=== PATIENT | male | born 1990 | race Hispanic/Latino ===

== ENCOUNTER 2017-03-01 15:48 | Emergency (ER) | payer OTHER ==
[~2017-03-01] VITALS: Ht 188 cm; Wt 63.0 kg
[~2017-03-01 15:48] MED LIST: BACTRIM DS1 TAB PO; FLUARIX QUADRIV1 INJ IM; MOTRIN800 MG PO; NO; PREVACID30 M3 PO; TYLENOL # 31 TA1 PO; ULTRAM50 M1 PO; ZOFRAN ODT4 MG PO
[2017-03-01] MEDS ORDERED: AMOXICILLIN500 MG PO (16:33)
[2017-03-01 17:01] LABS: INFLUENZA A NONE DETECTED (NONE DETECT); INFLUENZA B NONE DETECTED (NONE DETECT)
[2017-03-01 17:20] VITALS: BP 121/69
== END 2017-03-01 17:20 | disposition home or self-care (01) | DRG 153 ==
LOC: ED 15:48
PROVIDERS: Emergency Medicine
DX: J02.9 Acute pharyngitis, unspecified (principal); R09.81 Nasal congestion; R05 Cough

== ENCOUNTER 2023-03-11 15:54 | Emergency (ER) | payer OTHER ==
[~2023-03-11] VITALS: Ht 188 cm; Wt 60.0 kg
[~2023-03-11 15:54] MED LIST changes: +AMOXICILLIN500 MG PO
[2023-03-11 17:07] LABS: BASO% 0.3 % (0-3); EOS% 0.5 % (0-8); HEMATOCRIT 45.7 % (39.0-50.0); HEMOGLOBIN 15.4 g/dl (14.0-18.0); IMMATURE GRANULOCYTES 0.1 % (0.0-5.0); LYMPH% 35.3 % (15-41); MEAN CELL VOLUME 94.4 fL CALC (80.0-100.0); MEAN CORPUSCULAR HGB 31.8 pG CALC (26.0-32.0); MEAN CORPUSCULAR HGB CONC 33.7 g/dL CAL (32.0-36.0); NEUT# 5.39 thou/uL (1.82-7.42); NEUT% 56.8 % (42-76); RED BLOOD COUNT 4.84 mill/uL (4.70-6.10); RED CELL DISTRI WIDTH 11.7 % (11.5-15.5)
[2023-03-11 17:20] LABS: ALBUMIN 4.9 g/dL (3.2-5.0); ALKALINE PHOSPHATASE 65 u/l (38-126); BILIRUBIN, TOTAL 0.7 mg/dL (0.2-1.3); BUN 14 mg/dL (9-20); BUN/CREATININE RATIO 15 (12-20 (CALC)); CARBON DIOXIDE 28 mmol/l (22-30); CHLORIDE 104 mmol/l (95-108); CREATININE 0.9 mg/dL (0.7-1.3); GFR FOR AFR.AMER. > 60 ML/MIN (>=60 (CALC)); GFR OTHER RACES > 60 ML/MIN (>=60 (CALC)); LIPASE 67 u/l (23-300); SGOT/AST 29 u/l (17-59); SODIUM 141 mmol/l (137-146); TOTAL PROTEIN 7.8 g/dL (6.3-8.2)
[2023-03-11 17:21] LABS: ANION GAP 13 (6-22 (CALC)); POTASSIUM 3.5 mmol/l (3.5-5.1)
[2023-03-11 19:58] LABS: URINE BILIRUBIN - DIPSTICK NEGATIVE (NEGATIVE); URINE BLOOD DIPSTICK TRACE-INTACT (NEGATIVE); URINE COLOR YELLOW; URINE GLUCOSE - DIPSTICK NEGATIVE (NEGATIVE); URINE KETONE 15 mg/dL (NEGATIVE); URINE LEUK ESTERASE NEGATIVE (NEGATIVE); URINE PROTEIN - DIPSTICK NEGATIVE (NEG-TRACE); URINE SPECIFIC GRAVITY 1.015; URINE UROBILINOGEN - DIPSTICK 0.2 E.U./dL (0.2)
[2023-03-11 20:03] LABS: URINE NITRITE - DIPSTICK NEGATIVE (Negative)
[2023-03-11 20:54] VITALS: BP 114/69
== END 2023-03-11 21:02 | disposition home or self-care (01) ==
LOC: ED 15:54
PROVIDERS: Family Medicine
DX: K59.00 Constipation, unspecified (principal)
CPT/HCPCS: Q9967

== ENCOUNTER 2024-11-28 15:45 | Emergency (ER) | payer OTHER ==
[~2024-11-28] VITALS: Ht 188 cm; Wt 64.4 kg
[2024-11-28] VITALS (7 sets, daily range): BP systolic 110–135; BP diastolic 63–86
[2024-11-28] MEDS ORDERED: ORPHENADRINE CITRATE 30 MG/ML AMP IV ONE (16:25)
[2024-11-28] MEDS ORDERED: KETOROLAC TROMETHAMINE 30 MG/ML SDV IV ONE (16:25)
[2024-11-28 16:34] LABS: BASO% 0.3 % (0-3); EOS% 0.9 % (0-8); HEMOGLOBIN 16.1 g/dl (14.0-18.0); IMMATURE GRANULOCYTES 0.1 % (0.0-5.0); LYMPH% 37.6 % (15-41); MEAN CELL VOLUME 94.4 fL CALC (80.0-100.0); MEAN CORPUSCULAR HGB 32.3 pG CALC (26.0-32.0); MEAN CORPUSCULAR HGB CONC 34.3 g/dL CAL (32.0-36.0); MONO% 6.8 % (2-13); NEUT# 4.15 thou/uL (1.82-7.42); NEUT% 54.3 % (42-76); RED BLOOD COUNT 4.98 mill/uL (4.70-6.10); RED CELL DISTRI WIDTH 11.5 % (11.5-15.5)
[2024-11-28 16:35] LABS: URINE BILIRUBIN - DIPSTICK Negative (NEGATIVE); URINE BLOOD DIPSTICK Negative (NEGATIVE); URINE COLOR Yellow; URINE GLUCOSE - DIPSTICK Negative (NEGATIVE); URINE KETONE Negative (NEGATIVE); URINE LEUK ESTERASE Negative (NEGATIVE); URINE NITRITE - DIPSTICK Negative (Negative); URINE PROTEIN - DIPSTICK Negative (NEG-TRACE); URINE UROBILINOGEN - DIPSTICK 0.2 E.U./dL (0.2)
[2024-11-28 16:51] LABS: ALBUMIN 5.1 g/dL (3.2-5.0); BILIRUBIN, TOTAL 0.6 mg/dL (0.2-1.3); CREATININE 0.9 mg/dL (0.7-1.3); POTASSIUM 3.9 mmol/l (3.5-5.1); TOTAL PROTEIN 8.2 g/dL (6.3-8.2)
[2024-11-28] MEDS ORDERED: METHOCARBAMOL500 MG PO (19:09)
[2024-11-28] MEDS ORDERED: MIRALAX17 GM PO (19:09)
[2024-11-28] MEDS ORDERED: NAPROXEN500 MG PO (19:09)
== END 2024-11-28 19:28 | disposition home or self-care (01) ==
LOC: ED 15:45
PROVIDERS: Nurse Practitioner
DX: M79.651 Pain in right thigh (principal); K59.00 Constipation, unspecified; R62.50 Unspecified lack of expected normal physiological development in childhood
CPT/HCPCS: J2360; Q9967

== ENCOUNTER 2025-01-22 19:20 | Emergency (ER) | payer OTHER ==
[~2025-01-22] VITALS: Ht 188 cm; Wt 68.0 kg
[~2025-01-22 19:20] MED LIST changes: +METHOCARBAMOL500 MG PO; +MIRALAX17 GM PO; +NAPROXEN500 MG PO
[2025-01-22 22:06] VITALS: BP 138/68
== END 2025-01-22 22:06 | disposition home or self-care (01) ==
LOC: ED 19:20
DX: M25.471 Effusion, right ankle (principal)